=== PATIENT | male | born 1990 | race Hispanic/Latino ===

== ENCOUNTER 2016-10-27 10:19 | Emergency (ER) | payer SELFPAY ==
[~2016-10-27] VITALS: Ht 154.9 cm; Wt 52.8 kg
[~2016-10-27 10:19] MED LIST: BENADRYL50 MG PO; CLONAZEPAM1 MG PO; COLACE100 MG PO; DESYREL100 MG PO; ENDOCET 5-3251 EACH PO; ERYTHROMYC1 APPLICAT RIGHT EYE; GUANFACINE HCL1 MG PO; KLONOPIN1 MG PO; LACTULOSE10 GM/151 PO; MAALOX PLUS X-150 ML PO; MILK OF MAGNESIA PO; MYLANTA LIQUID355 ML; OLANZAPINE10 MG PO; OLANZAPINE5 M1 PO; PANTOPRAZOLE SO40 MG PO; QUETIAPINE FUM400 MG PO; TEGRETOL-XR,CA200 MG PO; THERA M PLUS T1 EACH PO; TRAZODONE HCL100 MG PO; TYLENOL650 MG/20. PO; ZYPREXA ZYDIS20 MG; ZYPREXA10 MG PO
[2016-10-27] MEDS ORDERED: ZYPREXA10 MG PO (11:41)
[2016-10-27] MEDS ORDERED: ZYPREXA ZYDIS 110 MG PO (11:42)
[2016-10-27] MEDS ORDERED: ZYPREXA ZYDIS15 MG PO (11:43)
[2016-10-27] MEDS ORDERED: BENADRYL50 MG PO (11:44)
[2016-10-27 12:09] LABS: ADD MIUA? NO; BILIRUBIN NEGATIVE; BLOOD NEGATIVE; COLOR YELLOW ((YELLOW)); GLUCOSE (STRIP) NEGATIVE; KETONES NEGATIVE; LEUKOCYTES NEGATIVE; NITRITE NEGATIVE; PROTEIN (STRIP) NEGATIVE; SPECIFIC GRAVITY 1.006 (1.000-1.030); UCUL ADDED? NO; UROBILINOGEN 0.2 MG/DL (0.2-1.0)
[2016-10-27 12:49] VITALS: BP 130/69
== END 2016-10-27 12:55 ==
LOC: EME 10:19
PROVIDERS: Emergency Medicine
PROC: 0HQ1XZZ Repair Face Skin, External Approach (ICD-10-PCS; principal; 2016-10-27)
PROC: 3E0234Z Introduction of Serum, Toxoid and Vaccine into Muscle, Percutaneous Approach (ICD-10-PCS; 2016-10-27)
DX: S01.111A Laceration without foreign body of right eyelid and periocular area, initial encounter (principal); S01.511A Laceration without foreign body of lip, initial encounter; S09.8XXA Other specified injuries of head, initial encounter; Y04.2XXA Assault by strike against or bumped into by another person, initial encounter; Y92.199 Unspecified place in other specified residential institution as the place of occurrence of the external cause; Z23 Encounter for immunization; Z98.2 Presence of cerebrospinal fluid drainage device; F17.200 Nicotine dependence, unspecified, uncomplicated
CPT/HCPCS: 70450; 81003; 99281; 99284